=== PATIENT | male | born 1970 | race Caucasian/White ===

== ENCOUNTER 2021-08-12 09:54 | Emergency (ER) | payer OTHER ==
--- NOTE | 2021-08-12 10:48 | XRAY Report ---
PROCEDURE: Hand 3 View RT INDICATIONS: Trauma TECHNIQUE: 3 views of the hand(s) acquired. COMPARISON: None FINDINGS: Bones: Moderately displaced comminuted fracture of the mid/proximal aspect of the proximal phalanx of the second digit. Mild angulation of the fracture fragments is present. There is a small bony fragme nt adjacent to the distal interphalangeal joint of the second digit, which could also represent a sep arate fracture fragment. No suspicious bony lesions. Soft tissues: No suspicious soft tissue calcifications. IMPRESSION: Second digit fractures as above. Reviewed by: Kadi Sparrow MD on 08/12/2021 10:47 AM [facility] Approved by: Kadi Sparrow MD on 08/12/2021 10:47 AM [facility] Station ID: [id number]
[2021-08-12] MEDS ORDERED: IBUPROFEN 600 MG TABLET PO STA (11:13)
[2021-08-12] MEDS ORDERED: ACETAMINOPHEN 325 MG TABLET PO STA (11:13)
[2021-08-12 12:01] VITALS: BP 143/94
--- NOTE | 2021-08-12 14:31 | ED Physician Documentation ---
PD HPI UPPER EXT INJURY - Stated complaint Stated Complaint: RT HAND INJURY - Chief complaint Chief Complaint: Trauma Ext - History obtained from History obtained from: Patient - History of Present Illness Location: Right, Hand, Finger (he got right dorsal fingers index and middle crushed by the tines of machinery, causing pain in index finger mostly and lacerations of the two fingers. Able to move the fingers but painful.) Type of injury: Blunt / blow Where injury occurred: Work Timing - onset: How many minutes ago (30), Today Timing - duration: Minutes (30) Timing - details: Abrupt onset, Still present Improved by: Rest Worsened by: Moving, Palpating Associated symptoms: Swelling. No: Weakness, Numbness Similar symptoms before: Has not had sx before Recently seen: Not recently seen Review of Systems Constitutional: denies: Fever, Chills Nose: denies: Rhinorrhea / runny nose, Congestion Throat: denies: Sore throat Respiratory: denies: Cough Skin: reports: Laceration (s) Neurologic: denies: Focal weakness, Numbness PD PAST MEDICAL HISTORY - Past Medical History Past Medical History: No - Present Medications Home Medications: Ambulatory Orders Medication Instructions Recorded Confirmed Ibuprofen [Motrin] 600 mg PO TID PRN #25 tab 08/12/21 Oxycodone HCl/Acetaminophen 1 each PO Q6H PRN #14 tablet 08/12/21 [Percocet 5-325 mg Tablet] Tadalafil [Cialis] 20 mg PO DAILY PRN 08/12/21 08/12/21 Tamsulosin HCl [Flomax] 0.4 mg PO DAILY 08/12/21 08/12/21 cephALEXin [Keflex] 500 mg PO QID 5 Days #20 cap 08/12/21 - Allergies Allergies/Adverse Reactions: Allergies Allergy/AdvReac Type Severity Reaction Status Date / Time Penicillins Allergy Rash Verified 08/12/21 10:19 - Social History Does the pt smoke?: No Smoking Status: Never smoker PD ED PE NORMAL - Vitals Vital signs reviewed: Yes - General General: Alert and oriented X 3, Well developed/nourished, Other (appears uncomfortable with fingers movement right hand. ) - Derm Derm: Normal color, Warm and dry - Extremities Extremities: Other (lacerations dorsal aspect right index and middle fingers proximal part of proximal phalanges. Tender mid proximal phalanx of index finger. normal color and cap refill in tips. ) - Neuro Neuro: Alert and oriented X 3, No motor deficit (he is able to flex and extend against resistance with right fingers. ), No sensory deficit, Normal speech Results - Vitals Vitals: Vital Signs - 24 hr 08/12/21 08/12/21 10:20 12:00 Temperature 36.6 C 36.4 C L Heart Rate 96 91 Respiratory 18 19 Rate Blood Pressure 151/89 H 143/94 H O2 Saturation 99 99 Oxygen O2 Source Room air - Rads (name of study) right hand Radiology: Prelim report reviewed (comminuted fracture proximalphalanx shaft of index finger.), See rad report PD MEDICAL DECISION MAKING - ED course Complexity details: re-evaluated patient (local anesth with ropivocaine, to reduce pain. He delcines IV nor IM meds, so given TYlenol and Ibuprofen with Ceftin PO. ), considered differential (fracture index finger dominant hand, with laceration over it, so open fracture. Local anesth injected and night monitor irrigated wound clean. Consult Ortho, who was in surgery so took about [address] Goetz felt it was more complicated that for him/our materials on najera, so referred to Hand.), d/w patient, d/w campaign consultant (Dr. Goetz, who came to ER to eval the patient. Wound had already been anesth and irrigated. He did splinting of the hand/fingers. ), other (discussed with Hand admissions dean at [facility], who felt the patient could be repaired tomorrow, so gave number for Hand Surgery [facility]inic for pt to call. ) Departure - Departure Disposition: 01 Home, Self Care Clinical Impression: Finger fracture, right Qualifiers: Encounter type: initial encounter Finger: index finger Fracture type: open Phalanx: proximal Fracture alignment: nondisplaced Qualified Code(s): S62.640B - Nondisplaced fracture of proximal phalanx of right index finger, initial encounter for open fracture Finger laceration Qualifiers: Encounter type: initial encounter Finger: unspecified finger Damage to nail status: without damage Foreign body presence: without foreign body Laterality: right Qualified Code(s): S61.219A - Laceration without foreign body of unspecified finger without damage to nail, initial encounter Condition: Stable Record reviewed to determine appropriate education?: Yes Instructions: ED Fx Finger Open Prescriptions: cephALEXin [Keflex] 500 mg PO QID 5 Days #20 cap Ibuprofen [Motrin] 600 mg PO TID PRN #25 tab PRN Reason: Pain Oxycodone HCl/Acetaminophen [Percocet 5-325 mg Tablet] 1 each PO Q6H PRN #14 tablet PRN Reason: pain Comments: I talked with the hand specialist on-call at [facility] trauma drifting by the name of Dr. Hurt. He states that you should be seen in the hand clinic at [facility] by Dr. Cheek tomorrow or Tuesday. Call the [facility] hand clinic today at [phone] and tell them you were seen in the ER here on would be and we talked with the hand specialist admissions dean for an urgent follow-up in the hand clinic. Keep the hand splinted. Elevate and rest at often for swelling. Use the anti- inflammatory ibuprofen 3 times a day with food. To that add Tylenol or Percocet if needed for pain. Cephalexin antibiotic 4 times a day for the next 5 days. Follow-up with a hand clinic at [facility] tomorrow or the next day as you are able to schedule with them. I transmitted your prescriptions to [facility] pharmacy in [place]. I am prescribing a short course of narcotic pain medication for you. These are potentially dangerous and addictive medications that should be used carefully. These medications may constipate you. Take an [id number] stool softener such as docusate twice daily with plenty of water while taking these medications. If you go 24 hours without a bowel movement, take [id number] MiraLAX, per package instructions. Do not drink or drive while taking these medications. If you received narcotic or sedating medications while in the emergency department do not drive for 24 hours. Store this medication in a safe, secure place and out of reach of children. It is a violation of federal law to give or sell this medication to another person or to use in a manner other than prescribed. The ED will not refill narcotic prescriptions, including prescriptions lost or stolen. You can dispose of unwanted medications at the [facility]'s office or at several pharmacies such as [facility]. Discharge Date/Time: 08/12/21 14:40
== END 2021-08-12 14:40 | disposition home or self-care (01) ==
LOC: ED 09:54
DX: S62.640B Nondisplaced fracture of proximal phalanx of right index finger, initial encounter for open fracture (principal); W31.9XXA Contact with unspecified machinery, initial encounter; Y99.0 Civilian activity done for income or pay
CPT/HCPCS: 1040M; 73130; 99283; A9270

== ENCOUNTER 2023-12-01 05:32 | Emergency (ER) | payer BC ==
--- NOTE | 2023-12-01 07:35 | ED Physician Documentation ---
PD HPI WOUND RECHECK - Stated complaint Stated Complaint: L SIDE INCISION DRAINING - Chief complaint Chief Complaint: Wound - Histroy obtained from History obtained from: Patient - History of Present Illness Location: Chest (he has left lower lung tumor/cancer that is getting chemo and RT. Had surgery by Dr. Piña in [facility] in Sep. Has had some local swelling but now redness, more swelling, and skin eroded with outpouring of yellow fluid today.) Timing - onset: How many days ago (just few days of redness, increased pain, tender and now opened sore with drainage copious amount of fluid.) Review of Systems Constitutional: denies: Fever, Chills Nose: denies: Congestion Throat: denies: Sore throat Cardiac: reports: Chest pain / pressure. denies: Palpitations Respiratory: denies: Cough PD PAST MEDICAL HISTORY - Past Medical History Past Medical History: Yes Cardiovascular: None Neuro: None Endocrine/Autoimmune: None : Benign prostate hypertrophy Other Past Medical History: stage 4 squamous cell carcinoma - Past Surgical History HEENT: Tonsil/Adenoidectomy - Present Medications Home Medications: Ambulatory Orders Medication Instructions Recorded Confirmed Oxycodone HCl/Acetaminophen 1 each PO Q6H PRN #14 tablet 08/12/21 12/01/23 [Percocet 5-325 mg Tablet] Tamsulosin HCl [Flomax] 0.4 mg PO DAILY 08/12/21 12/01/23 Amox/Clav 875/125 [Augmentin 1 mg PO BID 11/30/23 12/01/23 875/125 Tab] Albuterol Sulf [Ventolin Hfa 2 puffs INH Q6HR PRN 12/01/23 12/01/23 Inhaler] Ascorbic Acid [Vitamin C] 1 tab PO DAILY 12/01/23 12/01/23 Cefuroxime Axetil [Cefuroxime] 500 mg PO BID #14 tablet 12/01/23 Cyanocobalamin (Vitamin B-12) 1 tab PO DAILY 12/01/23 12/01/23 [Vitamin B-12] Doxycycline Hyclate 100 mg PO BID 7 Days #14 cap 12/01/23 Glucos Sul 2Kcl/MSM/Chond/C/Mn 1 each PO DAILY 12/01/23 12/01/23 [Glucosamine Chondroitin Cap] Loratadine [Claritin] 10 mg PO DAILY 12/01/23 12/01/23 Multivitamin 1 each PO DAILY 12/01/23 12/01/23 Oxycodone HCl/Acetaminophen 1 each PO Q6H PRN #20 tablet 12/01/23 [Percocet 5-325 mg Tablet] - Allergies Allergies/Adverse Reactions: Allergies Allergy/AdvReac Type Severity Reaction Status Date / Time Penicillins Allergy Rash Verified 12/01/23 10:17 - Social History Does the pt smoke?: No Smoking Status: Never smoker Does the pt drink ETOH?: Yes ETOH Use: Beer Does the pt have substance abuse?: Yes Substance Use and Type: Marijuana PD ED PE NORMAL - Vitals Vital signs reviewed: Yes - General General: Alert and oriented X 3, Well developed/nourished - HEENT HEENT: Pharynx benign - Neck Neck: Supple, no meningeal sign, No adenopathy - Cardiac Cardiac: No murmur. No: RRR (tachycardic but regular. ) - Respiratory Respiratory: No respiratory distress, Other (left chest wall showing rounded skin hole 1 cm diameter with yellow watery fluid from it. He gave a cough and it fountained out in 4-8 ounces volume. 2nd area with swelling and redness without drainage. ). No: Clear bilaterally (decreased notably on left side with some congested sounds and wheezing mid to lower lung field. ) - Abdomen Abdomen: Soft, Non tender - Derm Derm: Normal color, Warm and dry - Extremities Extremities: No edema, No calf tenderness / cord Results - Vitals Vitals: Vital Signs - 24 hr 12/01/23 12/01/23 12/01/23 05:35 08:47 10:16 Temperature 36.8 C Heart Rate 134 H 125 H 98 Respiratory 24 22 18 Rate Blood Pressure 124/74 116/73 118/85 H O2 Saturation 97 99 95 If not protocol 2 : Oxygen Flow, liters/minute 12/01/23 13:10 Temperature 36.1 C L Heart Rate 95 Respiratory 20 Rate Blood Pressure 112/80 O2 Saturation 98 If not protocol : Oxygen Flow, liters/minute Oxygen O2 Source Room air - Labs Labs: Microbiology 12/01/23 07:54 Wound Culture - Preliminary Chest Laboratory Tests 12/01/23 12/01/23 12/01/23 08:12 08:12 08:53 WBC 6.1 RBC 3.12 L Hgb 8.8 L Hct 27.1 L MCV 86.9 MCH 28.2 MCHC 32.5 RDW 18.5 H Plt Count 328 MPV 9.6 Neut # (Auto) 4.1 Lymph # (Auto) 0.9 L Costilla # (Auto) 1.0 Eos # (Auto) 0.0 Baso # (Auto) 0.1 Absolute Nucleated RBC 0.00 Nucleated RBC % 0.0 Sodium 128 L Potassium 3.4 L Chloride 91 L Carbon Dioxide 28 Anion Gap 9.0 BUN 7 Creatinine 0.8 Estimated GFR (MDRD) 100 Glucose 174 H Lactic Acid 0.9 Calcium 8.2 L Magnesium 1.3 L Total Bilirubin 0.6 AST 18 ALT 12 Alkaline Phosphatase 158 H Total Protein 6.4 Albumin 3.0 L Globulin 3.4 Albumin/Globulin Ratio 0.9 L Lipase < 10 L - Rads (name of study) chest xray Relevant Findings:: Prelim report reviewed, EMP independent interpretation of test (mass/infiltrate left lower.) chest CT Relevant Findings:: Prelim report reviewed, EMP independent interpretation of test (fluid collection with air bubbles left lower lobe, communicates to soft tissue fluid collection c/w abscess/empyema. ) PD Medical Decision Making - ED course Complexity details: reviewed results (he has normal white count, legative lactate, and is not febrile. CT showing fluid collection extendinon into lung area. Known lung cancer tumor seen. ), considered differential (had redness and swelling around thoracostomy scopic surgery sites left wall. History of lung c ancer with chemo and RT. Has had some swelling at the sites, now with redness and drainage concerning for abscess/ into lung area so empyema. ), d/w patient, d/w hr business partner consultant (Dr. Piña, thoracic surgery at [facility]. He reviewed the imaging and agreed it came from deeper. However is likely nec rotic tissue/fluid subsequent to chemo/RT of the mass, and not likely alll infection per se. Will see pt in office in few days. ) Drug Therapy Requiring Monitoring for Toxicity: ient had central port accessed. Given IV fluids and antibiotics of Cefipime, vanco and flagyl as recommended in UpToDate for empyema. Also some IV pain meds and he is feeling more comfortable. Departure - Departure Disposition: 01 Home, Self Care Clinical Impression: Lung tumor, Infection of chest Condition: Stable Record reviewed to determine appropriate education?: Yes Follow-Up: EFFIE GOULD MD [Provider Admit Priv/Credential] - MINDY PIÑA MD [Physician No Access] - Prescriptions: Cefuroxime Axetil [Cefuroxime] 500 mg PO BID #14 tablet Doxycycline Hyclate 100 mg PO BID 7 Days #14 cap Oxycodone HCl/Acetaminophen [Percocet 5-325 mg Tablet] 1 each PO Q6H PRN #20 tablet PRN Reason: pain Comments: The CT scan shows some fluid collection under the skin but it does seem to connect to the chest wall and the tumor mass. I talked with Dr. Holm who feels a lot of the fluid coming out is more likely necrotic tissue rather than pus per se. Obviously there is the redness and swelling of the skin so he wants us to treat you with antibiotics for infection. At this point he is not feeling that he would do any surgery or evacuation of the fluid since it is draining on its own. He would want to see you in the office early next week, the office will call you to set up an appointment and if you have not heard from them by tomorrow then contact his office. Otherwise your blood tests are good without any elevation of the white count nor lactate which is a marker for sepsis. You do not have a fever. Consideration is more for infection just of the skin and the fluid being more necrotic tissue. Continue with usual medicines. Contact Dr. Gould's office as well to update on this. I would suggest Tylenol every 4-6 hours if needed for pain. Add oxycodone/acetaminophen if needed for worse pain. I sent prescriptions to preferred pharmacy. We are trying to place a collection pouch over the opening so that the fluid collects into the air and you can just drain it out periodically. I would anticipate a diminishing of the fluid out as the reserve of it gets depleted. Return To an ER if worsening pain, or you develop fevers, general weakness, vomiting, other concerns. If worsening general symptoms, Dr. Holm says he would likely do some debridement or evacuation and would want you at that facility. We would likely transfer if you were here at that point. Forms: PCP List Discharge Date/Time: 12/01/23 13:33
[2023-12-01 08:29] LABS: BASOPHILS # (AUTO) 0.1 10^3/uL (0.0-0.1); BASOPHILS % (AUTO) 1.3 %; EOSINOPHILS % (AUTO) 0.5 %; HCT - HEMATOCRIT 27.1 % (42.0-52.0); HGB - HEMOGLOBIN 8.8 g/dL (14.0-18.0); LYMPHOCYTES # (AUTO) 0.9 10^3/uL (1.5-3.5); LYMPHOCYTES % (AUTO) 14.3 %; MEAN CORPUSCULAR HEMOGLOBIN 28.2 pg (27.0-31.0); MEAN CORPUSCULAR HGB CONC 32.5 g/dL (32.0-36.0); MEAN CORPUSCULAR VOLUME 86.9 fL (80.0-94.0); MEAN PLATELET VOLUME 9.6 fL (7.4-11.4); MONOCYTES % (AUTO) 16.4 %; NEUTROPHILS # (AUTO) 4.1 10^3/uL (1.5-6.6); NEUTROPHILS % (AUTO) 66.5 %; PLT - PLATELET COUNT 328 10^3/uL (130-450); RED BLOOD COUNT 3.12 10^6/uL (4.70-6.10); RED CELL DISTRIBUTION WIDTH 18.5 % (12.0-15.0); WHITE BLOOD COUNT 6.1 x10^3/uL (4.8-10.8)
--- NOTE | 2023-12-01 08:31 | XRAY Report ---
PROCEDURE: Chest 1V INDICATIONS: chest pain TECHNIQUE: One view of the chest was acquired. COMPARISON: None. FINDINGS: Surgical changes and devices: Left chest Port-A-Cath. Lungs and pleura: No volume loss in the left hemithorax. Opacification of much of the left hemithora x, potentially a combination of consolidation, atelectasis, and pleural fluid. Question pulmonary edgar ma. Mediastinum: Mediastinal contours appear normal. Suspect cardiomegaly. Bones and chest wall: No suspicious bony lesions. Overlying soft tissues appear unremarkable. IMPRESSION: 1. Significant process involving the left hemithorax, with volume loss, probably with a combination o f atelectasis, consolidation, and pleural fluid. 2. Suspect cardiomegaly. 3. Superimposed congestive heart failure 4. Patient is noted to have a Port-A-Cath. Comment: No old films are available for comparison. Reviewed by: Spenser Ferrara MD on 12/01/2023 8:30 AM PDT Approved by: Spenser Ferrara MD on 12/01/2023 8:30 AM PDT Station ID: [id number]
[2023-12-01] MEDS: KETOROLAC 15 MG/ML VIAL IVP STA (08:40)
[2023-12-01 08:41] LABS: MAGNESIUM 1.3 mg/dL (1.7-2.3)
[2023-12-01] MEDS: HYDROmorphone 1 MG/ML CARPUJECT IVP STA ×2 (08:42→12:58)
[2023-12-01 08:47] LABS: ALBUMIN/GLOBULIN RATIO 0.9 (1.0-2.2); ALKALINE PHOSPHATASE 158 IU/L (42-121); ALT ALANINE AMINOTRANSFERASE 12 IU/L (10-60); AST ASPARTATE AMINOTRANSFERASE 18 IU/L (10-42); BILIRUBIN,TOTAL 0.6 mg/dL (0.2-1.0); BUN - BLOOD UREA NITROGEN 7 mg/dL (6-20); CALCIUM 8.2 mg/dL (8.5-10.3); CARBON DIOXIDE - CO2 28 mmol/L (21-32); CHLORIDE 91 mmol/L (101-111); CREATININE 0.8 mg/dL (0.6-1.3); GFR - MDRD 100 (>89); GLUCOSE 174 mg/dL (74-104); LIPASE < 10 U/L (11-82); POTASSIUM 3.4 mmol/L (3.5-4.5); SODIUM 128 mmol/L (135-145); TOTAL PROTEIN 6.4 g/dL (6.4-8.9)
[2023-12-01] MEDS ORDERED: iohexoL-300 100 ML VIAL ONE (09:04)
[2023-12-01] MEDS: VANCOMYCIN INJ 1.5 GM in SODIUM CHLORIDE 0.9% 500 ML IV ONE (09:12)
[2023-12-01] MEDS: CEFEPIME 1 GM in SODIUM CHLORIDE 0.9% MINIBAG 100 ML IV STA (09:13)
[2023-12-01] MEDS: metroNIDAZOLE 500 MG/100 ML 500 MG/100 ML BAG IV ONE (09:14)
[2023-12-01] MEDS: SODIUM CHLORIDE 0.9% 1,000 ML IV STA (09:25)
[2023-12-01] MEDS: LIDOCAINE-EPINEPH-TETRACAINE 3 ML SYRINGE TOP STA (09:47)
--- NOTE | 2023-12-01 11:51 | CT Report ---
PROCEDURE: Chest W INDICATIONS: abscess/empyema left chest; lung cancer CONTRAST: Omni 300 100ml TECHNIQUE: After the administration of intravenous contrast, a CT scan of the chest was performed. Images were recorded and evaluated at appropriate window settings. Reformats: axial MIP of the chest, coronal and sagittal. For radiation dose reduction, the following was used: automated exposure control, adjustme nt of mA and/or kV according to patient size. COMPARISON: Chest x-ray 12/01/2023 FINDINGS: Image quality: Diagnostic. Chest wall and lower neck: No thyroid nodule which requires sonographic follow up. No axillary or sup raclavicular adenopathy by size. Lungs and pleura: Multiple patchy and confluent areas of opacity are present throughout the left wendy thorax. There is a fluid collection within the left lower lobe measuring approximately 10.7 x 11.6 cm demonstrating air. Mediastinum: Heart size is normal. No pericardial effusion. No large vessel abnormality. 1.2 cm left paratracheal lymph node series 2 image 44. Bones: No aggressive osseous abnormality. Upper Abdomen: Unremarkable. IMPRESSION: Fluid and air collection within the left lower lobe most concerning for abscess/empyema. Left hemithorax areas of patchy opacity and scattered fluid. Please could represent areas of addition al airspace disease such as pneumonia, developing additional areas of abscess or underlying malignanc y cannot be excluded. Mediastinal adenopathy. Pelvis could be reactive in nature, given history of malignancy, metastatic a denopathy should be considered. Reviewed by: Lolly Corrales MD on 12/01/2023 11:50 AM PDT Approved by: Lolly Corrales MD on 12/01/2023 11:50 AM PDT Station ID: [id number]
[2023-12-01 13:20] VITALS: BP 112/80; O2SAT 98
[2023-12-01] MEDS: iohexoL-300 100 ML VIAL IVP ONE (14:51)
== END 2023-12-01 13:33 | disposition home or self-care (01) ==
LOC: ED 05:32
DX: J95.89 Other postprocedural complications and disorders of respiratory system, not elsewhere classified (principal); B99.9 Unspecified infectious disease; C34.90 Malignant neoplasm of unspecified part of unspecified bronchus or lung; N40.0 Benign prostatic hyperplasia without lower urinary tract symptoms; Z79.899 Other long term (current) drug therapy
CPT/HCPCS: 36415; 71045; 71260; 80053; 83605; 83690; 83735; 85025; 87040; 87070; 87077; 87181; 87205; 93005; 96365; 96366; 96368; 96375; 96376; 99284; J1170; J3370; Q9967

== ENCOUNTER 2023-12-21 08:00 | Outpatient (CLI) | payer BC | END 2023-12-21 23:59 | disposition home or self-care (01) | LOC: PC 08:00 | PROVIDERS: ATTEND Nurse Practitioner Adult Health | DX: Z51.5 Encounter for palliative care (principal); G89.3 Neoplasm related pain (acute) (chronic); K59.03 Drug induced constipation; F41.8 Other specified anxiety disorders; C34.92 Malignant neoplasm of unspecified part of left bronchus or lung; Z51.89 Encounter for other specified aftercare; Z71.89 Other specified counseling | CPT/HCPCS: 99205; 99417 ==

== ENCOUNTER 2023-12-28 08:00 | Outpatient (CLI) | payer BC | END 2023-12-28 08:01 | disposition home or self-care (01) | LOC: PC 08:00 | PROVIDERS: ATTEND Nurse Practitioner Adult Health | DX: Z51.5 Encounter for palliative care (principal); C34.92 Malignant neoplasm of unspecified part of left bronchus or lung; G89.3 Neoplasm related pain (acute) (chronic); K59.03 Drug induced constipation; Z88.5 Allergy status to narcotic agent; Z51.89 Encounter for other specified aftercare | CPT/HCPCS: 99215 ==

== ENCOUNTER 2024-01-04 13:05 | Outpatient (CLI) | payer BC | END 2024-01-04 23:59 | disposition home or self-care (01) | LOC: PC 13:05 | PROVIDERS: ATTEND Nurse Practitioner Adult Health | DX: Z51.5 Encounter for palliative care (principal); C34.92 Malignant neoplasm of unspecified part of left bronchus or lung; G89.3 Neoplasm related pain (acute) (chronic); K59.03 Drug induced constipation; Z87.09 Personal history of other diseases of the respiratory system; R06.00 Dyspnea, unspecified | CPT/HCPCS: 99215 ==

== ENCOUNTER 2024-01-11 10:58 | Emergency (ER) | payer BC ==
[2024-01-11 11:16] VITALS: O2SAT 98
--- NOTE | 2024-01-11 12:01 | ED Physician Documentation ---
History of Present Illness - Stated complaint Stated Complaint: WOUND DRAINING - Chief complaint Chief Complaint: Wound - History obtained from History obtained from: Patient - History of Present Illness Timing: How many days ago (3-4) Pain level max: 6 Pain level now: 6 - Additonal information Additional information: Patient is a 53-year-old male who presents to the emergency department stating that he had a chest tube in September. At the chest tube incision site he developed an abscess about 2 months later, this was incised and drained. He states that over the past 3 to 4 days he has noted swelling and redness in the area again. There was drainage today. He was at the [facility] for his chemoinfusion but was sent here for an abscess drainage. He is currently on doxycycline. No fevers. No chills. He states that it did rupture and drain today. Review of Systems Constitutional: denies: Fever, Chills GI: denies: Vomiting, Diarrhea Skin: denies: Rash Musculoskeletal: denies: Neck pain, Back pain Neurologic: denies: Headache PD PAST MEDICAL HISTORY - Past Medical History Past Medical History: Yes Cardiovascular: None Respiratory: Other Neuro: None Endocrine/Autoimmune: None GI: None : Benign prostate hypertrophy HEENT: None Psych: Depression Musculoskeletal: Osteoarthritis Other Past Medical History: lung cancer - Past Surgical History Past Surgical History: Yes HEENT: Tonsil/Adenoidectomy - Present Medications Home Medications: Ambulatory Orders Medication Instructions Recorded Confirmed Tamsulosin HCl [Flomax] 0.4 mg PO DAILY 08/12/21 01/11/24 Albuterol Sulf [Ventolin Hfa 2 puffs INH Q6HR PRN 12/01/23 01/11/24 Inhaler] Ascorbic Acid [Vitamin C] 1 tab PO DAILY 12/01/23 01/11/24 Cefuroxime Axetil [Cefuroxime] 500 mg PO BID #14 tablet 12/01/23 01/11/24 Cyanocobalamin (Vitamin B-12) 1 tab PO DAILY 12/01/23 01/11/24 [Vitamin B-12] Doxycycline Hyclate 100 mg PO BID 7 Days #14 cap 12/01/23 01/11/24 Glucos Sul 2Kcl/MSM/Chond/C/Mn 1 each PO DAILY 12/01/23 01/11/24 [Glucosamine Chondroitin Cap] Multivitamin 1 each PO DAILY 12/01/23 01/11/24 Oxycodone HCl/Acetaminophen 1 each PO Q6H PRN #20 tablet 12/01/23 01/11/24 [Percocet 5-325 mg Tablet] - Allergies Allergies/Adverse Reactions: Allergies Allergy/AdvReac Type Severity Reaction Status Date / Time Penicillins Allergy Rash Verified 01/11/24 11:03 - Social History Does the pt smoke?: No Smoking Status: Former smoker Does the pt drink ETOH?: Yes ETOH Use: Beer Does the pt have substance abuse?: Yes Substance Use and Type: Marijuana - Immunizations Immunizations are current?: Yes - POLST Patient has POLST: No PD ED PE NORMAL - Vitals Vital signs reviewed: Yes - General General: Alert and oriented X 3, No acute distress - HEENT HEENT: Moist mucous membranes - Neck Neck: Supple, no meningeal sign - Cardiac Cardiac: RRR - Respiratory Respiratory: No respiratory distress, Clear bilaterally - Derm Derm: Warm and dry - Neuro Neuro: Alert and oriented X 3 - Psych Psych: Normal mood, Normal affect - Free text exam Free text exam: Has a 3 x 3 cm indurated, erythematous area to the left mid axillary line. Small amount of purulent drainage. Results - Vitals Vitals: Vital Signs - 24 hr 01/11/24 01/11/24 11:03 12:48 Temperature 37 C 36.8 C Heart Rate 110 H 107 H Respiratory 20 20 Rate Blood Pressure 113/88 H 116/74 O2 Saturation 98 98 Oxygen O2 Source Room air Procedures - Abscess I&D (location) L chest wall Preparation: Confirmed with ultrasound, Chlorhexadine, Lidocaine 2%, With epi Incision: Incised with scalpel, Purulent drainage, Loculations broken, Packed, Culture obtained Other: Pt tolerated well, Dressing applied PD Medical Decision Making - ED course Complexity details: considered differential, d/w patient ED course: Incision and drainage was performed, the abscess pocket was opened. Plain packing was used inside. Patient tolerated very well. He is on doxycycline already at home, we will continue this, pending his wound culture. No significant surrounding cellulitis. Patient is well-appearing, nontoxic. Afebrile. Patient counseled regarding signs and symptoms for which I believe and urgent re-evaluation would be necessary. Patient with good understanding of and agreement to plan and is comfortable going home at this time This document was made in part using voice recognition software. While efforts are made to proofread this document, sound alike and grammatical errors may occur. Departure - Departure Disposition: 01 Home, Self Care Clinical Impression: Abscess Condition: Good Instructions: ED Abscess IandD Follow-Up: Rod Reddy MD [Primary Care Provider] - Within 3 Days Comments: Please follow-up with your doctor in 3 days for a wound check. Please leave the packing in place, but you can change the outer dressing. It is okay if the pack ing does fall out, it would likely not need to be replaced. We have also sent a wound culture and we will call you if your antibiotic needs to be changed from doxycycline. Forms: PCP List Discharge Date/Time: 01/11/24 12:49
[2024-01-11] MEDS: LIDOCAINE 2%-EPI 1:100000 20 ML MDV SUBQ STA (12:10)
[2024-01-11 12:56] VITALS: BP 116/74
== END 2024-01-11 12:49 | disposition home or self-care (01) ==
LOC: ED 10:58
DX: N40.0 Benign prostatic hyperplasia without lower urinary tract symptoms (principal); Z85.118 Personal history of other malignant neoplasm of bronchus and lung
CPT/HCPCS: 10061; 87070; 87205; 99283

== ENCOUNTER → 2024-01-11 | Outpatient (CLI) | payer BC | LOC: PC 08:00 | PROVIDERS: ATTEND Nurse Practitioner Adult Health | DX: Z51.5 Encounter for palliative care (principal); S21.102S Unspecified open wound of left front wall of thorax without penetration into thoracic cavity, sequela; R52 Pain, unspecified; F41.8 Other specified anxiety disorders; C34.92 Malignant neoplasm of unspecified part of left bronchus or lung; L02.213 Cutaneous abscess of chest wall | CPT/HCPCS: 99215 ==

== ENCOUNTER 2024-01-18 08:00 | Outpatient (CLI) | payer BC | END 2024-01-18 23:59 | disposition home or self-care (01) | LOC: PC 08:00 | PROVIDERS: ATTEND Nurse Practitioner Adult Health | DX: Z51.5 Encounter for palliative care (principal); S21.102S Unspecified open wound of left front wall of thorax without penetration into thoracic cavity, sequela; C34.92 Malignant neoplasm of unspecified part of left bronchus or lung; R52 Pain, unspecified; E87.6 Hypokalemia; F41.8 Other specified anxiety disorders | CPT/HCPCS: 99215 ==

== ENCOUNTER 2024-02-03 08:00 | Outpatient (CLI) | payer BC | END 2024-02-03 23:59 | disposition home or self-care (01) | LOC: PC 08:00 | PROVIDERS: ATTEND Nurse Practitioner Adult Health | DX: Z51.5 Encounter for palliative care (principal); C34.90 Malignant neoplasm of unspecified part of unspecified bronchus or lung | CPT/HCPCS: 99426 ==

== ENCOUNTER 2024-02-08 13:15 | Outpatient (CLI) | payer BC | END 2024-02-08 23:59 | disposition home or self-care (01) | LOC: PC 13:15 | PROVIDERS: ATTEND Nurse Practitioner Adult Health | DX: Z51.5 Encounter for palliative care (principal); C34.92 Malignant neoplasm of unspecified part of left bronchus or lung; C79.9 Secondary malignant neoplasm of unspecified site; E87.6 Hypokalemia; E83.42 Hypomagnesemia; G62.0 Drug-induced polyneuropathy; T45.1X5A Adverse effect of antineoplastic and immunosuppressive drugs, initial encounter; R06.00 Dyspnea, unspecified; S21.102S Unspecified open wound of left front wall of thorax without penetration into thoracic cavity, sequela; X58.XXXS Exposure to other specified factors, sequela; F41.9 Anxiety disorder, unspecified; F32.A Depression, unspecified; Z71.89 Other specified counseling; Z87.891 Personal history of nicotine dependence | CPT/HCPCS: 99215 ==

== ENCOUNTER 2024-02-29 14:37 | Outpatient (CLI) | payer BC ==
--- NOTE | 2024-02-29 16:39 | XRAY Report ---
PROCEDURE: Chest 2V INDICATIONS: DYSPNEA TECHNIQUE: 2 views of the chest were acquired. COMPARISON: 12/01/2023. FINDINGS: Surgical changes and devices: Left chest wall Port-A-Cath. Lungs and pleura: Improved aeration of the left lung compared to 12/01/2023. Residual left midlung co nsolidation as well as increased interstitial markings and pleural effusion. Right lung is clear. Mediastinum: Mediastinal contours appear normal. Heart size is normal. Bones and chest wall: No suspicious bony lesions. Overlying soft tissues appear unremarkable. IMPRESSION: Improved aeration of the left lung compared to 12/01/2023. Residual left midlung consolidation as well as increased interstitial markings and pleural effusion. Continued follow-up radiograph to resolutio n to exclude underlying malignancy is recommended. Reviewed by: Kenan Dockery MD on 02/29/2024 4:38 PM PDT Approved by: Kenan Dockery MD on 02/29/2024 4:38 PM PDT Station ID: [id number]
== END 2024-02-29 14:38 | disposition home or self-care (01) ==
LOC: DI 14:37
PROVIDERS: ATTEND Nurse Practitioner Adult Health
DX: C34.90 Malignant neoplasm of unspecified part of unspecified bronchus or lung (principal); R06.00 Dyspnea, unspecified; J90 Pleural effusion, not elsewhere classified; R91.8 Other nonspecific abnormal finding of lung field

== ENCOUNTER → 2024-02-29 | Outpatient (CLI) | payer BC | LOC: PC 13:00 | PROVIDERS: ATTEND Nurse Practitioner Adult Health | DX: Z51.5 Encounter for palliative care (principal); C34.82 Malignant neoplasm of overlapping sites of left bronchus and lung; Z79.620 Long term (current) use of immunosuppressive biologic; E87.6 Hypokalemia; R06.00 Dyspnea, unspecified; R53.83 Other fatigue; G62.0 Drug-induced polyneuropathy; T45.1X5S Adverse effect of antineoplastic and immunosuppressive drugs, sequela; S21.102S Unspecified open wound of left front wall of thorax without penetration into thoracic cavity, sequela; F41.8 Other specified anxiety disorders; Z79.899 Other long term (current) drug therapy | CPT/HCPCS: 99215 ==

== ENCOUNTER 2024-04-25 10:10 | Outpatient (CLI) | payer BC, MEDICAID | END 2024-04-25 23:59 | disposition home or self-care (01) | LOC: PC 10:10 | PROVIDERS: ATTEND Nurse Practitioner Adult Health | DX: Z51.5 Encounter for palliative care (principal); C34.92 Malignant neoplasm of unspecified part of left bronchus or lung; N20.0 Calculus of kidney; T45.1X5A Adverse effect of antineoplastic and immunosuppressive drugs, initial encounter; G62.0 Drug-induced polyneuropathy; R06.00 Dyspnea, unspecified; E87.6 Hypokalemia; F41.8 Other specified anxiety disorders; Z71.89 Other specified counseling | CPT/HCPCS: 99215 ==

== ENCOUNTER 2024-04-30 15:17 | Observation (INO) | payer BC, MEDICAID ==
--- NOTE | 2024-04-30 17:32 | Ultrasound Report ---
PROCEDURE: Duplex Ext Veins Left INDICATIONS: pain TECHNIQUE: Real-time imaging, as well as color and pulse Doppler interrogation, were performed of the lower extr emity deep veins from the inguinal ligament to the popliteal fossa. Attempted visualization of the ca lf veins was performed. COMPARISON: None. FINDINGS: Common femoral vein and saphenofemoral junction demonstrate normal compression. There is curvilinear intrinsic thrombus in the profunda femoral vein demonstrating partial occlusion and partial compression of the lumen. There is nonocclusive thrombus in the femoral vein, proximal, m id, and distal portions. Expansile thrombus seen in the popliteal vein. Calf veins demonstrate thromb us. Peroneal vein is not well seen. There is subcutaneous edema. IMPRESSION: There is deep venous thrombus ranging from occlusive to partially occlusive throughout the left lower extremity with the proximalmost aspect just distal to the saphenofemoral junction. Preliminary results given by the flue blower to the ordering provider immediately following the study . Reviewed by: Kalpana Martinez MD on 04/30/2024 5:31 PM PDT Approved by: Kalpana Martinez MD on 04/30/2024 5:31 PM PDT Station ID: [id number]
--- NOTE | 2024-04-30 17:51 | ED Physician Documentation ---
History of Present Illness - Stated complaint Stated Complaint: LT LEG SWELLING,PX - Chief complaint Chief Complaint: Ext Problem - Additonal information Additional information: 54-year-old male currently undergoing treatment for stage IV lung cancer currently receiving immunotherapy has already completed chemo and radiation. Patient is doing pulmonary rehabilitation he started feeling left knee pain last Tuesday he originally thought maybe he overexerted himself but the pain is gotten more severe. His entire left lower extremity is now quite swollen he also reports over the last 3 to 4 weeks he has been having increased shortness of breath no nausea vomiting no fevers or chills. PD PAST MEDICAL HISTORY - Past Medical History Past Medical History: Yes Cardiovascular: None Respiratory: Other Neuro: None Endocrine/Autoimmune: None GI: None : Benign prostate hypertrophy HEENT: None Psych: Depression Musculoskeletal: Osteoarthritis - Past Surgical History Past Surgical History: Yes HEENT: Tonsil/Adenoidectomy - Present Medications Home Medications: Ambulatory Orders Medication Instructions Recorded Confirmed Tamsulosin HCl [Flomax] 0.4 mg PO DAILY 08/12/21 04/30/24 Ascorbic Acid [Vitamin C] 1 tab PO DAILY 12/01/23 04/30/24 Cyanocobalamin (Vitamin B-12) 1 tab PO DAILY 12/01/23 04/30/24 [Vitamin B-12] Glucos Sul 2Kcl/MSM/Chond/C/Mn 1 each PO DAILY 12/01/23 04/30/24 [Glucosamine Chondroitin Cap] Multivitamin 1 each PO DAILY 12/01/23 04/30/24 Oxycodone HCl/Acetaminophen 1 each PO Q6H PRN #20 tablet 12/01/23 04/30/24 [Percocet 5-325 mg Tablet] Potassium Chloride [K-Dur] 20 meq PO BIDWM 30 Days #60 tablet 03/07/24 04/30/24 Albuterol Sulf [Ventolin Hfa 1 inh INH PRN PRN 04/30/24 04/30/24 Inhaler] Pregabalin 1 cap PO TID 04/30/24 04/30/24 - Allergies Allergies/Adverse Reactions: Allergies Allergy/AdvReac Type Severity Reaction Status Date / Time Penicillins Allergy Rash Verified 04/30/24 15:23 - Social History Does the pt smoke?: No Smoking Status: Never smoker Does the pt drink ETOH?: Yes Does the pt have substance abuse?: Yes - Immunizations Immunizations are current?: Yes - POLST Patient has POLST: No PD ED PE NORMAL - Vitals Vital signs reviewed: Yes - General General: Alert and oriented X 3, No acute distress, Well developed/nourished, Other (diaphoretic) - HEENT HEENT: Atraumatic, PERRL, EOMI - Neck Neck: Supple, no meningeal sign - Cardiac Cardiac: Other (tachy) - Respiratory Respiratory: No respiratory distress, Other (diminished bilaterally) - Abdomen Abdomen: Soft, Non tender - Back Back: No CVA TTP - Extremities Extremities: Other (LLE swelling) - Neuro Neuro: Alert and oriented X 3, instrumentation and controls technician 2-12 intact, No motor deficit, No sensory deficit, Normal speech Results - Vitals Vitals: Vital Signs - 24 hr 04/30/24 04/30/24 04/30/24 15:24 18:39 19:00 Temperature 37.0 C 37.1 C Heart Rate 110 H 106 H 109 H Respiratory 16 19 21 Rate Blood Pressure 122/80 120/76 107/82 H O2 Saturation 96 98 96 04/30/24 21:00 Temperature Heart Rate 110 H Respiratory 20 Rate Blood Pressure 103/73 O2 Saturation 94 Oxygen O2 Source Room air - EKG (time done) 1810 EKG releavant findings:: EKG personally interpreted by author of this note. Relevant findings are: Rhythm: Sinus tachycardia (107) Barnhart: Normal Intervals: Normal IA, Prolonged QT QRS: Normal, Low voltage Ischemia: Other (Anteroseptal infarct) Other comments: Other comments (Probable left atrial enlargement) Computer interpretation: Agree with computer - Labs Labs: Laboratory Tests 04/30/24 04/30/24 04/30/24 18:25 18:25 18:25 WBC 9.8 RBC 4.27 L Hgb 11.9 L Hct 38.0 L MCV 89.0 MCH 27.9 MCHC 31.3 L RDW 14.0 Plt Count 263 MPV 9.9 Neut # (Auto) 5.9 Lymph # (Auto) 2.5 Cuming # (Auto) 1.2 H Eos # (Auto) 0.2 Baso # (Auto) 0.0 Absolute Nucleated RBC 0.00 Nucleated RBC % 0.0 Sodium 135 Potassium 3.7 Chloride 105 Carbon Dioxide 20 L Anion Gap 10.0 BUN 15 Creatinine 1.0 Estimated GFR (MDRD) 77 L Glucose 129 H Calcium 9.1 Magnesium 1.7 Total Bilirubin 0.8 AST 10 ALT 10 Alkaline Phosphatase 118 Troponin I High Sens 13.5 Total Protein 7.4 Albumin 3.6 Globulin 3.8 Albumin/Globulin Ratio 0.9 L Lipase 10 L - Rads (name of study) Angio chest CT with and without Relevant Findings:: Final report received, EMP independent interpretation of test, Other (Pulmonary emboli within the distal right main pulmonary artery extending to segmental and subsegmental branches of the right upper and right lower pulmonary arteries. Small groundglass opacities in the right upper lobe worsening of the left upper and lower lobe infiltrates, cardiomegaly) Left lower extremity venous duplex Relevant Findings:: Final report received, EMP independent interpretation of test, Other (DVT ranging from occlusive to partial occlusive throughout the left lower extremity within the proximalmost aspect just distal to the saphenofemoral junction) PD Medical Decision Making - ED course ED course: 54-year-old male presents emergency department presenting for left lower extremity pain. Upon further examination patient does report that he has been having increased shortness of breath with chest pain for the last 2 to 3 weeks. EKG shows sinus tachycardia venous duplex was completed of his left lower extremity and he does appear to have a DVT ranging from the occlusive to partially occlusive throughout the left lower extremity with the proximalmost aspect just distal to the saphenofemoral junction. Because of patient's tachycardia increased shortness of breath we went ahead with a chest CT angio which did reveal a pulmonary emboli within the distal right main pulmonary artery extending to th making him high risk for mortality and e segmental and subsegmental branches of the right upper and right lower lobe pulmonary arteries. He also appears to have some small groundglass opacities in the right upper lobe interval worsening of the left lung aeration suggestive worsening left upper and lower lobe infiltrates persistent small to moderate left pleural effusions without pneumothorax. CT also reveals cardiomegaly without pericardial effusion prominent size of the main pulmonary artery which can be seen associated with pulmonary vascular hypertension. Prominent size of the mediastinal lymph nodes which may be reactive in nature. Patient says that he has been coughing up any phlegm he remains afebrile here in the emergency department labs are complete for further evaluation he does not appear to have any leukocytosis no significant anemia normal kidney function no other electrolyte abnormalities. He was given a liter of IV fluids here in the emergency department he does appear to be diaphoretic patient says this is normal for him as he just got off work when he came into the emergency department is still feeling tired from this. He was given 100 mg of Lovenox subcutaneous injection here in the emergency department and he is agreeable to be admitted to the hospital for further hospitalization given his high PESI score. Report given to on-call telemetry hospitalist who is graciously agreed to admit the patient for further hospitalization and patient has agreed to stay. Departure - Departure Disposition: [facility] DC/Xfer Forms: PCP List
[2024-04-30 18:39] LABS: BASOPHILS % (AUTO) 0.4 %; EOSINOPHILS # (AUTO) 0.2 10^3/uL (0.0-0.7); EOSINOPHILS % (AUTO) 2.1 %; HGB - HEMOGLOBIN 11.9 g/dL (14.0-18.0); LYMPHOCYTES # (AUTO) 2.5 10^3/uL (1.5-3.5); LYMPHOCYTES % (AUTO) 25.3 %; MEAN CORPUSCULAR HEMOGLOBIN 27.9 pg (27.0-31.0); MEAN CORPUSCULAR HGB CONC 31.3 g/dL (32.0-36.0); MEAN PLATELET VOLUME 9.9 fL (7.4-11.4); MONOCYTES # (AUTO) 1.2 10^3/uL (0.0-1.0); MONOCYTES % (AUTO) 11.9 %; NEUTROPHILS # (AUTO) 5.9 10^3/uL (1.5-6.6); PLT - PLATELET COUNT 263 10^3/uL (130-450); RED BLOOD COUNT 4.27 10^6/uL (4.70-6.10); WHITE BLOOD COUNT 9.8 x10^3/uL (4.8-10.8)
[2024-04-30] MEDS ORDERED: iohexoL-300 100 ML VIAL ONE (18:54)
[2024-04-30 19:02] LABS: ALBUMIN 3.6 g/dL (3.2-5.5); ALBUMIN/GLOBULIN RATIO 0.9 (1.0-2.2); BILIRUBIN,TOTAL 0.8 mg/dL (0.2-1.0); CALCIUM 9.1 mg/dL (8.5-10.3); MAGNESIUM 1.7 mg/dL (1.7-2.3); POTASSIUM 3.7 mmol/L (3.5-4.5); TOTAL PROTEIN 7.4 g/dL (6.4-8.9)
[2024-04-30] MEDS: iohexoL-300 100 ML VIAL IVP ONE (19:39)
[2024-04-30] MEDS: HYDROcod/ACETAM 5/325 MG TABLET PO STA (19:41)
--- NOTE | 2024-04-30 20:29 | CT Report ---
PROCEDURE: Angio Chest INDICATIONS: Left leg DVT, SOA CONTRAST: Omni 300 80ml TECHNIQUE: After the administration of intravenous contrast, 2 mm axial images were acquired from the pulmonary apices to the posterior costophrenic angles during the arterial phase. In addition, 1 mm lung kernel and 5 mm soft tissue kernel reconstructions were performed. 3-dimensional coronal oblique maximum int ensity projection (MIP) reformats, 8 mm axial MIP, and 5 mm coronal and sagittal MPR reformats were t hen performed through the thorax. For radiation dose reduction, the following was used: automated exp osure control, adjustment of mA and/or kV according to patient size. COMPARISON: 04/11/2024. FINDINGS: Image quality: Excellent. Large vessels: Intraluminal filling defects are noted involving distal right main pulmonary artery ex tending to segmental and subsegmental branches of right upper and lower lobe pulmonary arteries. No f illing defects are noted in right middle lobe or left pulmonary artery branches. Prominence of main p ulmonary trunk is seen which can be seen associated with pulmonary vascular hypertension. No evidence of acute aortic syndrome or aortic aneurysm. Lungs and pleura: There is moderate left pleural effusion. Extensive airspace opacities are noted in left upper and lower lobes suggestive of left-sided pulmonary infiltrates slightly worse compared to 04/11/2024 study. Small groundglass opacity in lateral right upper lung field is also noted new since p revious study. Central and peripheral airway is patent. Mediastinum: Heart size is enlarged. No pericardial effusion. No large vessel abnormality. Prominent mediastinal lymph nodes are seen measures up to 1.5 cm in size and precarinal space. Chest wall and l ower neck: Thyroid is unremarkable. No axillary or supraclavicular adenopathy by size. Bones: No aggressive osseous abnormality. Upper Abdomen: Unremarkable. IMPRESSION: 1. Finding is suggestive of small pulmonary emboli within distal right main pulmonary artery extendin g to segmental and subsegmental branches of right upper and lower lobe pulmonary arteries. No left-si ded pulmonary emboli. 2. Interval development of small groundglass opacity in right upper lobe. Interval worsening of left lung aeration suggestive of worsening left upper and lower lobe infiltrates. Persistent small to mode rate left pleural effusion. No pneumothorax. 3. Cardiomegaly, no pericardial effusion. Prominent in size of main pulmonary artery which can be see n associated with pulmonary vascular hypertension. No thoracic aortic aneurysm or dissection. 4. Prominent in size of mediastinal lymph nodes and may be reactive in nature. Reviewed by: Buck Burroughs MD on 04/30/2024 8:27 PM PDT Approved by: Buck Burroughs MD on 04/30/2024 8:27 PM PDT Station ID: [id number]
[2024-04-30] MEDS: ENOXAPARIN 100 MG/ML SYRINGE SUBQ STA (21:04)
[2024-04-30] MEDS: SODIUM CHLORIDE 0.9% 1,000 ML IV ONE (21:05)
[2024-04-30] MEDS: oxyCODONE 5 MG TABLET PO STA (21:47)
[2024-04-30] MEDS ORDERED: ACETAMINOPHEN 325 MG TABLET PO PRN (22:16)
[2024-04-30] MEDS ORDERED: HYDROcod/ACETAM 5/325 MG TABLET PO PRN (22:16)
[2024-04-30] MEDS ORDERED: SODIUM CHLORIDE FLUSH 0.9% 10 ML SYRINGE IVP PRN (22:16)
--- NOTE | 2024-04-30 22:32 | HISTORY & PHYSICAL EXAMINATION ---
Chief Complaint - Chief Complaint Chief Complaint: left leg pain History of Present Illness - Admitted From Admitted From:: home - History Obtained From Records Reviewed: yes History obtained from: patient, ER staff, chart review Exam Limitations: telemedicine - History of Present Illness HPI Comment/Other: Mr Luong is a 54 yo M with history of stage IV lung cancer, completed treatment when chemo/therapy and now on immunotherapy every 3 months (next infusion in May). He presents to the ER with complaints of left leg pain. It started approximately 2.5 weeks ago after pulmonary rehab - he felt his left leg was sore and assumed it was muscle pain related to over-exercise. It got progressively worse into his knee, and the past few days up into his upper/inner thigh. He has also been feeling more short of breath the past few days, he does have chronic underlying dyspnea related to malignancy. He denies fevers, chills, abd pain, n/v. He denies palpitations or chest pain. He has received hydrocodone in the ER which has been helpful for the leg pain. No prior history of DVT/PE, he is not on anticoagulation. History - Past Medical History Cardiovascular: reports: None, Arrhythmia Respiratory: reports: Other Neuro: reports: None Endocrine/Autoimmune: reports: None GI: reports: None : reports: Benign prostate hypertrophy HEENT: reports: None Psych: reports: Depression Musculoskeletal: reports: Osteoarthritis MRSA Hx?: No - Past Surgical History HEENT: reports: Tonsil/Adenoidectomy - POLST Patient has POLST: No Meds/Allgy - Home Medications Home Medications: Ambulatory Orders Medication Instructions Recorded Confirmed Tamsulosin HCl [Flomax] 0.4 mg PO DAILY 08/12/21 04/30/24 Ascorbic Acid [Vitamin C] 1 tab PO DAILY 12/01/23 04/30/24 Cyanocobalamin (Vitamin B-12) 1 tab PO DAILY 12/01/23 04/30/24 [Vitamin B-12] Glucos Sul 2Kcl/MSM/Chond/C/Mn 1 each PO DAILY 12/01/23 04/30/24 [Glucosamine Chondroitin Cap] Multivitamin 1 each PO DAILY 12/01/23 04/30/24 Oxycodone HCl/Acetaminophen 1 each PO Q6H PRN #20 tablet 12/01/23 04/30/24 [Percocet 5-325 mg Tablet] Potassium Chloride [K-Dur] 20 meq PO BIDWM 30 Days #60 tablet 03/07/24 04/30/24 Albuterol Sulf [Ventolin Hfa 1 inh INH PRN PRN 04/30/24 04/30/24 Inhaler] Pregabalin 1 cap PO TID 04/30/24 04/30/24 - Allergies Allergies/Adverse Reactions: Allergies Allergy/AdvReac Type Severity Reaction Status Date / Time Penicillins Allergy Rash Verified 04/30/24 15:23 Review of Systems - Constitutional Constitutional: reports: Fatigue, Diaphoresis (chronic). denies: Fever, Chills, Malaise, Poor appetite - Cardiovascular Cariovascular: reports: Edema (Left leg), Decr. exercise tolerance. denies: Palpitations, Chest pain - Respiratory Respiratory: reports: Cough (chronic), SOB with exertion. denies: Sputum production, Wheezing - Gastrointestinal Gastrointestinal: denies: Abdominal pain, Constipation, Diarrhea, Change in bowel habits - Musculoskeletal Musculoskeletal: reports: Muscle aches (left leg) - Integumentary Integumentary: denies: Rash, Pruritis - Neurological Neurological: denies: General weakness, Headache Exam - Vital Signs Reviewed Vital Signs: Yes Vital Signs: Vital Signs x48h Temp Pulse Resp BP Pulse Ox 04/30/24 21:00 110 H 20 103/73 94 04/30/24 19:00 37.1 C 109 H 21 107/82 H 96 04/30/24 18:39 106 H 19 120/76 98 04/30/24 15:24 37.0 C 110 H 16 122/80 96 - Physical Exam General Appearance: positive: No acute distress, Alert, Anxious (wants to go to bed) Respiratory: positive: No respiratory distress Cardiovascular: positive: Tachycardia Skin: positive: Color nml, No rash Extremities: positive: Other (left leg swelling noted, no evidence of skin breakdown (limited exam via telemedicine)) Neurologic/Psychiatric: positive: Oriented x3 Conclusion/Plan - Lab Results Fish Bones: 04/30/24 18:25 04/30/24 18:25 - Diagnostic Imaging Results Diagnostic Imaging Results: positive: Final report reviewed - EKG Results EKG Interpreted Independently: Yes EKG Findings: sinus tachycardia, 107 bpm - Other Other Results/Comments: RLL pulmonary embolism LLE DVT, occlusive/nonocclusive -CT chest with small pulmonary emboli within distal right main pulmonary artery extending to segmental and subsegmental branches of right upper and right lower lobe pulmonary arteries -Closely monitor extensive LLE DVT, currently with palpable distal pedal pulses per RN provider exam, no evidence of skin breakdown/necrosis -Continue Lovenox sc 1 mg/kg BID -Follow up echocardiogram -clothing trades workers History of stage IV lung cancer -Patient is s/p chemotherapy/radiation therapy -Currently on immunotherapy q3 months History of chronic pain syndrome -Continue pain control -Continue home dose Lyrica 50 mg qhs and 25 mg qam BPH -Continue Flomax Full code DVT ppx: therapeutic lovenox Admit for observation. Core Measures - Anticipated LOS I expect patient to be DC'd or transferred within 96 hours.: Yes - DVT/VTE - Prophylaxis VTE/DVT Device ordered at admit?: Yes
[2024-04-30] MEDS ORDERED: ENOXAPARIN 100 MG/ML SYRINGE SUBQ ONE (23:00)
[2024-04-30] MEDS: PREGABALIN 25 MG CAPSULE PO SCH (23:43)
[2024-04-30] MEDS: TAMSULOSIN 0.4 MG CAPSULE PO ONE (23:43)
[2024-04-30] MEDS: SODIUM CHLORIDE FLUSH 0.9% 10 ML SYRINGE IVP SCH (23:44)
[2024-05-01] MEDS: PREGABALIN 25 MG CAPSULE PO SCH (08:14)
[2024-05-01] MEDS: ENOXAPARIN 100 MG/ML SYRINGE SUBQ SCH (08:15)
[2024-05-01] MEDS: HYDROcod/ACETAM 10 MG/325 MG TABLET PO PRN (09:32)
[2024-05-01] MEDS ORDERED: oxyCODONE 5 MG TABLET PO PRN ×2 (10:29→10:34)
[2024-05-01] MEDS ORDERED: ACETAMINOPHEN 325 MG TABLET PO PRN ×2 (10:33→10:35)
[2024-05-01 11:52] VITALS: BP 109/74; O2SAT 97
--- NOTE | 2024-05-01 12:19 | PHARMACY PROGRESS NOTE ---
- Best Possible Medication History Admit Date and Time: 04/30/242215 Processed by: Pharmacy Medications reviewed in ED?: Yes Medication History completed: Yes Patient Interview: Completed (BY MACHINE CLERICAL VERIFIER ABBY) Secondary Source(s): Insurance records As the person ultimately responsible for medication therapy, providers are able to order a medication from an existing home medication list in [facility] via the "Reconcile Routine" prior to Confirmation of that medication by academic support center director. Such practice is discouraged except when the physician, in their clinical judgment, deems that a medical need exists for a medication without regard to previous use.
--- NOTE | 2024-05-01 13:06 | Discharge Plan ---
Discharge Plan Problem Reviewed?: Yes Disposition: Home, Self Care Condition: Fair Prescriptions: Apixaban [Eliquis] 5 mg PO BID #70 tablet Diet: Regular Activity Restrictions: Activity as Tolerated Shower Restrictions: No Driving Restrictions: No Instruction Topics: Apixaban oral tablets, DVT, DVT Complications Health Concerns: Unfortunately you are a gentleman who has stage IV lung cancer and you are doing your best to stay active and follow instructions with regards to activity and medication. In spite of that you developed left leg pain. You came to the emergency room and were found to have a left leg blood clot. You were brought in overnight to make sure that you stayed stable with regards to blood pressure, and oxygen. You have now been started on blood thinners to prevent any further blood clot from developing. Plan of Treatment: You are on a new medicine called Eliquis. You will take 2 tablets twice a day. The tablets are 5 mg. You will take the 2 tablets twice a day for 7 days. And then you will go to 1 tablet twice a day thereafter. It is a potent blood thinner so you cannot take things like aspirin, ibuprofen, Aleve. That only increases your risk of bleeding. Please see your primary care provider, Cece Benavidez, in follow-up and let them know that you are on a new blood thinner. Care Goals: You are in the process of getting your affairs in order. You already have a process specialist. Assessment: Patient is alert, oriented to person, place, time and situation No Smoking: If you smoke, Please STOP! Call for help. Follow-up with: Cece Benavidez ARNP [Provider Admit Priv/Credential] -
--- NOTE | 2024-05-01 13:11 | DISCHARGE SUMMARY ---
"Discharge Summary Admit Date: 04/30/24 Discharge Date: 05/01/24 Discharging Provider: Lizz Callahan MD Primary Care Provider: RAJANI Contreras Code Status: Do Not Attempt Resuscitation Condition at Discharge: Fair Discharge Disposition: 01 Home, Self Care - DIAGNOSES Discharge Diagnoses with Status of Each Condition: 1. Pulmonary emboli involving distal right main pulmonary artery extending to segmental and subsegmental branches of the right upper and lower lobe pulmonary arteries. 2. DVT left leg 3. Moderate left pleural effusion. 4. Abnormal CT with extensive airspace opacities in the left upper and lower lobe suggestive of worsening infiltrates or cancer 5. 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 He presents to the ER with complaints of left leg pain. It started approximately 2.5 weeks ago after pulmonary rehab - he felt his left leg was sore and assumed it was muscle pain related to over-exercise. It got progressively worse into his knee, and the past few days up into his upper/inner thigh. He has also been feeling more short of breath the past few days, he does have chronic underlying dyspnea related to malignancy. He denies fevers, chills, abd pain, n/v. He denies palpitations or chest pain. He has received hydrocodone in the ER which has been helpful for the leg pain. No prior history of DVT/PE, he is not on anticoagulation. - Past Medical History Cardiovascular: reports: None, Arrhythmia Respiratory: reports: Other Neuro: reports: None Endocrine/Autoimmune: reports: None GI: reports: None : reports: Benign prostate hypertrophy HEENT: reports: None Psych: reports: Depression Musculoskeletal: reports: Osteoarthritis MRSA Hx?: No - Past Surgical History HEENT: reports: Tonsil/Adenoidectomy - CONSULTS | PROCEDURES Procedures: Venous duplex of left leg having DVT ranging from occlusive to partially occlusive throughout the left lower extremity with the proximalmost aspect just distal to the saphenofemoral junction. CT pulmonary angiogram has subsegmental PEs on the right side. Left has pleural effusion and worsening infiltrative lung disease versus worsening cancer Echo with normal ejection fraction of 55%. Moderate right ventricular enlargement. Right ventricular systolic function moderately impaired. Abnormal right heart pressures. RVSP at rest 64 mmHg. - HOSPITAL COURSE Hospital Course: The patient was brought in because of a high PESI score. He was tachycardic, slightly hypoxic. Evidence of right ventricular strain on EKG. He has been stable overnight. Does not need oxygen. Complains of left leg pain. Has been started on Eliquis. I queried his pharmacy plan to see if Eliquis or Xarelto are covered. Both are covered without a co-pay. As such I will be sending the patient home on Eliquis. He is a lung cancer patient. Which would mean he would most likely need Eliquis for the rest of his life. I explained that to him. He has tears in his eyes as he tells me that he thinks he will not be on this earth for very long. His prognosis is grim. He is happy to go home today. He wants to spend as little time in the hospital as possible. I would like her to follow-up with his primary care provider, Cece Benavidez. He is following up with Dr. Gould in the oncology clinic but may be switching to the new provider since Dr. Gould is leaving the clinic. - ALLERGIES Allergies/Adverse Reactions: Allergies Allergy/AdvReac Type Severity Reaction Status Date / Time Penicillins Allergy Rash Verified 04/30/24 15:23 - MEDICATIONS Home Medications: Ambulatory Orders Medication Instructions Recorded Confirmed Tamsulosin HCl [Flomax] 0.4 mg PO QPM 08/12/21 05/01/24 Ascorbic Acid [Vitamin C] 2 tab PO DAILY 12/01/23 05/01/24 Multivitamin 1 tab PO DAILY 12/01/23 05/01/24 Albuterol Sulf [Ventolin Hfa 2 puffs INH Q6H PRN 04/30/24 05/01/24 Inhaler] Pregabalin 25 mg PO DAILY 04/30/24 05/01/24 Apixaban [Eliquis] 5 mg PO BID #70 tablet 05/01/24 Oxycodone HCl/Acetaminophen 1 - 2 tab PO Q4H PRN 05/01/24 05/01/24 [Percocet 5-325 mg Tablet] Pregabalin 50 mg PO QPM 05/01/24 05/01/24 - PHYSICAL EXAM AT DISCHARGE General Appearance: positive: No acute distress, Alert Eyes Bilateral: positive: PERRL ENT: positive: Pharynx nml, No signs of dehydration Neck: positive: No JVD. negative: Stiff neck Respiratory: positive: No respiratory distress. negative: Wheezes, Rales, Rhonchi Cardiovascular: positive: Regular rate & rhythm, Tachycardia Peripheral Pulses: positive: 1+ Abdomen: positive: Non-tender, No organomegaly, Nml bowel sounds Skin: positive: Warm, Dry Extremities: positive: Pedal edema (left leg up to thigh) Neurologic/Psychiatric: positive: Oriented x3, CN's nml (2-12), Motor nml - LABS Result Diagrams: 04/30/24 18:25 04/30/24 18:25"
== END 2024-05-01 13:45 | disposition home or self-care (01) ==
LOC: ED 15:17 → MS2 22:16
PROVIDERS: ADMIT Student in an Organized Health Care Education/Training Program; ATTEND Specialist
DX: I26.99 Other pulmonary embolism without acute cor pulmonale (principal); J90 Pleural effusion, not elsewhere classified; R91.8 Other nonspecific abnormal finding of lung field; C34.92 Malignant neoplasm of unspecified part of left bronchus or lung; N40.0 Benign prostatic hyperplasia without lower urinary tract symptoms; M19.90 Unspecified osteoarthritis, unspecified site; G89.4 Chronic pain syndrome; I82.412 Acute embolism and thrombosis of left femoral vein; I82.432 Acute embolism and thrombosis of left popliteal vein; R00.0 Tachycardia, unspecified; Z79.01 Long term (current) use of anticoagulants; Z79.899 Other long term (current) drug therapy; Z92.21 Personal history of antineoplastic chemotherapy; Z92.3 Personal history of irradiation
CPT/HCPCS: 36415; 71275; 80053; 83690; 83735; 84484; 85025; 93005; 93307; 93971; 96361; 96372; 96374; 99284; 99285; A9270; G0378; J1650; Q9967

== ENCOUNTER 2024-05-09 08:00 | Outpatient (CLI) | payer BC | END 2024-05-09 23:59 | disposition home or self-care (01) | LOC: PC 08:00 | PROVIDERS: ATTEND Nurse Practitioner Adult Health | DX: Z51.5 Encounter for palliative care (principal); C34.92 Malignant neoplasm of unspecified part of left bronchus or lung; E87.6 Hypokalemia; I26.99 Other pulmonary embolism without acute cor pulmonale; I82.4Z2 Acute embolism and thrombosis of unspecified deep veins of left distal lower extremity; J90 Pleural effusion, not elsewhere classified; T45.1X5A Adverse effect of antineoplastic and immunosuppressive drugs, initial encounter; G65.2 Sequelae of toxic polyneuropathy; K59.03 Drug induced constipation; F41.8 Other specified anxiety disorders; Z92.3 Personal history of irradiation | CPT/HCPCS: 99215 ==

== ENCOUNTER 2024-05-22 08:00 | Outpatient (CLI) | payer BC, MEDICAID ==
--- NOTE | 2024-05-22 16:02 | XRAY Report ---
PROCEDURE: Abdomen 1 V INDICATIONS: RENAL CALCULUS, LEFT TECHNIQUE: 1 view of the abdomen were acquired. COMPARISON: None. FINDINGS: Surgical changes and devices: None. Bowel: No pneumoperitoneum. The bowel gas pattern is normal. Moderate] fecal debris Soft tissues: No masses; visualized solid organ contours appear normal in size. No suspicious abdom inal calcifications. Bones: No suspicious bony abnormalities. IMPRESSION: Moderate fecal debris in the right colon. No suspicious calculus Reviewed by: Calixto Bergeron MD on 05/22/2024 3:00 PM [facility]DT Approved by: Calixto Bergeron MD on 05/22/2024 3:00 PM AKDT Station ID: [id number]
== END 2024-05-22 23:59 | disposition home or self-care (01) ==
LOC: DI.WOS 08:00
PROVIDERS: ATTEND Urology
DX: Z09 Encounter for follow-up examination after completed treatment for conditions other than malignant neoplasm (principal); Z87.442 Personal history of urinary calculi